=== PATIENT | female | born 1995 | race Two or more races ===

== ENCOUNTER 2018-07-15 16:13 | Emergency (ER) | payer MEDICAID ==
[~2018-07-15] VITALS: Ht 170.2 cm; Wt 99.8 kg
[2018-07-15] MEDS ORDERED: IPRATROPIUM BROM 0.5 MG/2.5ML INH SOL NEB ONE (19:15)
[2018-07-15] MEDS ORDERED: ALBUTEROL SULF 2.5 MG/0.5ML(0.5%) NEB SOLN NEB ONE (19:15)
[2018-07-15 19:24] VITALS: BP 119/57
== END 2018-07-15 19:58 | disposition home or self-care (01) ==
LOC: ER 16:21
DX: F41.0 Panic disorder [episodic paroxysmal anxiety] (principal); F45.8 Other somatoform disorders; R06.02 Shortness of breath
CPT/HCPCS: 71046; 93005; 94640; 99284; J7611; J7644

== ENCOUNTER 2018-10-08 09:54 | Emergency (ER) | payer MEDICAID ==
[~2018-10-08] VITALS: Ht 170.2 cm; Wt 98.4 kg
[2018-10-08 10:09] VITALS: BP 126/55
[2018-10-08 10:10] LABS: Basophils # (auto) 0 uL; Basophils % (auto) 0.4 % (0.0-2.0); Eosinophils # (auto) 0.1 uL; Eosinophils % (auto) 0.8 % (0.0-7.0); Hematocrit 42.2 % (36.0-46.0); Hemoglobin 14.1 g/dL (12.2-16.2); Lymphocytes % (auto) 18.6 % (10.0-50.0); Mean Corpuscular Hemoglobin 27.3 pg (28.0-32.0); Mean Corpuscular Hgb Conc. 33.4 g/dL (32.0-36.0); Mean Corpuscular Volume 81.8 fL (80.0-100.0); Monocytes # (auto) 0.8 uL; Monocytes % (auto) 7.5 % (0.0-12.0); Neutrophils # (auto) 7.8 uL; Neutrophils % (auto) 72.7 % (37.0-80.0); Platelet Count (auto) 250 10^3/uL (140-450); Red Blood Cells 5.16 10^6/uL (4.0-5.20); White Blood Cell 10.7 10^3/uL (4.4-10.8)
[2018-10-08 10:29] LABS: Albumin 3.7 g/dL (3.4-5.0); Calcium 8.8 mg/dL (8.5-10.1); Potassium 3.8 mmol/L (3.5-5.1)
[2018-10-08 10:32] LABS: BUN/Creatinine Ratio 8.3; Bilirubin, Total 0.6 mg/dL (0.2-1.0); Total Protein 7.9 g/dL (6.4-8.2)
== END 2018-10-08 12:03 | disposition home or self-care (01) ==
LOC: ER 09:54
DX: O26.851 Spotting complicating pregnancy, first trimester (principal); O20.0 Threatened abortion; Z3A.01 Less than 8 weeks gestation of pregnancy
CPT/HCPCS: 36415; 76801; 80053; 81002; 84702; 85025

== ENCOUNTER 2019-02-25 05:44 | Emergency (ER) | payer MEDICAID ==
[~2019-02-25] VITALS: Ht 170.2 cm; Wt 99.8 kg
[2019-02-25 06:12] VITALS: BP 112/54
[2019-02-25] MEDS ORDERED: cefTRIAXone SOD 1,000 MG VL IM ONE (07:30)
== END 2019-02-25 08:07 | disposition home or self-care (01) ==
LOC: ER 05:44
DX: H66.91 Otitis media, unspecified, right ear (principal); J03.90 Acute tonsillitis, unspecified
CPT/HCPCS: 96372; 99283; J0696

== ENCOUNTER 2025-01-05 16:11 | Emergency (ER) | payer MEDICAID, SELFPAY ==
[~2025-01-05] VITALS: Ht 170.2 cm; Wt 88.1 kg
[2025-01-05 19:00] LABS: Urine Bacteria None Seen /hpf (None Seen)
[2025-01-05 19:09] LABS: Urine Blood Negative /uL (Negative); Urine Clarity Clear (Clear); Urine Color Colorless (Yellow); Urine Protein, UAD Negative (Negative); Urine Specific Gravity 1.006 (1.001-1.035); Urine Squamous Epithelial Cell FEW /hpf (<5); Urine Urobilinogen Normal (Negative); Urine WBC < 1 /HPF (0-5)
--- NOTE | 2025-01-05 19:31 | DVH ---
OB EVALUATION, LESS THAN 14 WEEKS CLINICAL HISTORY: VIABILITY COMPARISON: None TECHNIQUE: Grayscale, color-flow Doppler, and spectral Doppler ultrasound of the pelvis is performed by transabdominal technique. FINDINGS: The uterus measures 13.7 x 6.9 x 7.8 cm. Intrauterine gestational sac and pole identified. Yolk sac is also noted. Mean gestational sac diameter 1.7 cm. [place]-rump length 0.7 cm. Average ultrasound age 6 weeks 2 days. Estimated due date 08/29/2025. heart rate 127 beats per minute. Approximately 1 cm hypoechoic focus adjacent to the gestational sac. Right ovary is not visualized. Left ovary measures 2.7 x 3.2 x 1.6 cm and demonstrates dopplerable b lood flow on spectral analysis. No free fluid identified in the cul-de-sac. IMPRESSION: Single living intrauterine gestation as above. Small subchorionic hematoma.
--- NOTE | 2025-01-05 20:15 | ED.PDOC ---
MUSSEL [employer]ARMER HPI Comments Patient states she was six weeks and four days . Says yesterday she started having mild cramping then today she had some light spotting. States she was . Cramping in his mild today. Saw OBGYN, had blood work done but no ultrasound done yet. Chief Complaint: Vaginal Bleed Time Seen by MD: 16:13 Reviewed Notes: Nurses Notes Allergies: Coded Allergies: NO KNOWN ALLERGIES (Unverified , 09/14/15) Information Source: Patient Past Medical History PAST MEDICAL HISTORY: Denies Surgical History: Denies all surgeries MAINTENANCE ENGINEER History: No Pertinent MAINTENANCE ENGINEER History Family History Family History: Unknown Social History Smoker: Non-Smoker Alcohol: Denies ETOH Use Drugs: Denies Drug Use Lives In: Home Constitutional: denies: chills, diaphoresis, fatigue, fever, malaise, sweats, weakness, others EENTM: denies: blurred vision, double vision, ear bleeding, ear discharge, ear drainage, ear pain, ear ringing, eye pain, eye redness, hearing loss, mouth pain, mouth swelling, nasal discharge, nose bleeding, nose congestion, nose pain, photophobia, tearing, throat pain, throat swelling, voice changes, others Respiratory: denies: cough, hemoptysis, orthopnea, SOB at rest, shortness of breath, SOB with excertion, stridor, wheezing, others Cardiovascular: denies: chest pain, dizzy spells, diaphoresis, Dyspnea on exertion, edema, irregular heart beat, left arm pain, lightheadedness, palpitations, PND, syncope, others Gastrointestinal: reports: abdominal pain; denies: abdomen distended, blood streaked bowels, constipated, diarrhea, dysphagia, difficulty swallowing, hematemesis, melena, nausea, poor appetite, poor fluid intake, rectal bleeding, rectal pain, vomiting, others Genitourinary: reports: abnormal vagina bleeding; denies: burning, dyspareunia, dysuria, flank pain, frequency, hematuria, incontinence, pain, , vagina discharge, urgency, others Neurological: denies: dizziness, fainting, headache, left sided numbness, left sided weakness, numbness, paresthesia, pre-existing deficit, right sided numbness, right sided weakness, seizure, speech problems, tingling, tremors, weakness, others Musculoskeletal: denies: back pain, gout, joint pain, joint swelling, muscle pain, muscle stiffness, neck pain, others Integumetry: denies: bruises, change in color, change in hair/nails, dryness, laceration, lesions, lumps, rash, wounds, others Allergic/Immunocompromised: denies: Difficulty Healing, Frequent Infections, Hives, Itching, others Physical Exam General Appearance: No Apparent Distress, Normal HEENT: Normal ENT Inspection, Pharynx Normal, TMs Normal Neck: Full Range of Motion, Non-Tender, Normal, Normal Inspection Respiratory: Chest Non-Tender, Lungs Clear, No Accessory Muscle Use, No Respiratory Distress, Normal Breath Sounds Cardiovascular: No Edema, No JVD, No Murmur, No Gallop, Normal Peripheral Pulses, Regular Rate/Rhythm Breast Exam: Deferred Gastrointestinal: No Organomegaly, Non Tender, No Pulsatile Mass, Normal Bowel Sounds, Soft Genitalia: Deferred Pelvic: Deferred Rectal: Deferred Extremities: No calf tenderness, Normal capillary refill, Normal inspection, Normal range of motion, Non-tender, No pedal edema Musculoskeletal : Apperance: Normal Neurologic: Alert, mop man II-XII nml as Tested, No Motor Deficits, Normal Affect, Normal Mood, No Sensory Deficits Cerebellar Function: Normal Reflexes: Normal Skin: Dry, Normal Color, Warm Lymphatic: No Adenopathy Was a procedure done? Was a procedure done?: No Differential Diagnosis (MAINTENANCE ENGINEER) Vaginal Bleeding: - Missed, - Threatened, Abruptio Placentae, Dysmenorrhea, Ectopic X-Ray, Labs, Meds, VS Vital Signs Date Time Temp Pulse Resp B/P (MAP) Pulse Ox O2 Delivery O2 Flow Rate FiO2 01/05/25 16:35 98.3 70 18 111/60 (77) 100 Lab Test 01/05/25 17:19 01/05/25 17:02 Range/Units Beta HCG, Quantitative 58232.0 H 1.5-4.2 mIU/mL Urine Color Colorless Yellow Urine Clarity Clear Clear Urine pH 6.0 5.0-9.0 Urine Specific [place] 1.006 1.001-1.035 Urine Protein Negative Negative Urine Ketones 2+ H Negative Urine Blood Negative Negative /uL Urine Nitrite Negative Negative Urine Bilirubin Negative Negative Urine Urobilinogen Normal Negative mg/dL Urine Leukocyte Esterase Negative Negative /uL Urine RBC 1 0 - 4 /hpf Urine Microscopic WBC < 1 0-5 /HPF Urine Squamous Epithelial Cells Few <5 /hpf Urine Bacteria None seen None Seen /hpf Urine Glucose Normal Normal mg/dL X-Ray, Labs, Meds, VS Comment Imaging: X-rays and CT scans were reviewed and interpreted by this provider, imaging shows no fractures and no pathological disease. Pending radiology review. Laboratory: Labs reviewed and interpreted by this provider. No significant abnormalities noted. Patient has prior medical visits reviewed. Med reconciliation performed Vital signs reviewed Time of 1ST Reevaluation: 20:15 Reevaluation 1ST: Unchanged Patient Education/Counseling: Diagnosis, Treatment, Need For Follow Up (Patient advised to follow-up in the emergency room in the next 24 to 48 hours if symptoms do not improve. Advised follow-up with PCP in the next 3 to 5 days. Patient verbalized understanding. ) Family Education/Counseling: Diagnosis Departure 1 Departure Time of Disposition: 20:14 Impression: Primary Impression: Subchorionic hemorrhage Qualified Codes: O20.8 - Other hemorrhage in early Additional Impression: First trimester Disposition: 01 HOME / SELF CARE / HOMELESS Condition: Fair Discharged With: Self Critical Care Note Critical Care Time?: No Stability Stability form required: No Heart Score Heart Score: Heart Score Response (Comments) Value History N/A 0 EKG N/A 0 Age N/A 0 Risk Factors N/A 0 Troponin N/A 0 Total 0 TUCKER LOOMIS Jan 05, 2025 20:15
[2025-01-05 20:20] VITALS: TEMP 98.1
[2025-01-05 20:55] VITALS: BP 107/66; PULSE 76; RESP 18; O2SAT 98
== END 2025-01-05 21:00 | disposition home or self-care (01) ==
LOC: ER 16:11
DX: Z34.90 Encounter for supervision of normal pregnancy, unspecified, unspecified trimester (principal); Z3A.01 Less than 8 weeks gestation of pregnancy
CPT/HCPCS: 36415; 76801; 81001; 84702